=== PATIENT | female | born 1955 ===

== ENCOUNTER 2022-08-30 10:45 | Inpatient (IN) | payer OTHER ==
[~2022-08-30] VITALS: Ht 160 cm; Wt 630.5 kg
[2022-08-30] MEDS ORDERED: COZAAR50 MG PO (13:21)
[2022-08-30] MEDS ORDERED: CLONAZEPAM0.5 MG PO (13:22)
[2022-08-30] MEDS ORDERED: CARDIZEM CD120 MG PO (13:22)
[2022-09-01] MEDS ORDERED: LANSOPRAZOLE30 MG (16:05)
== END 2022-09-03 11:27 | disposition home or self-care (01) | DRG 328 ==
LOC: O/R 08-31 06:48 → ICU 08-31 06:48 → SURG 08-31 10:45 → ICU 08-31 20:36
PROVIDERS: ADMIT Surgery; ATTEND Surgery
PROC: 8E0W4CZ Robotic Assisted Procedure of Trunk Region, Percutaneous Endoscopic Approach (ICD-10-PCS; 2022-08-31)
PROC: 0BQT4ZZ Repair Diaphragm, Percutaneous Endoscopic Approach (ICD-10-PCS; principal; 2022-08-31 15:45)
DX: K44.9 Diaphragmatic hernia without obstruction or gangrene (principal); D69.6 Thrombocytopenia, unspecified; R06.09 Other forms of dyspnea
CPT/HCPCS: 43281; S2900

== ENCOUNTER 2022-09-05 12:05 | Emergency (ER) | payer OTHER ==
[~2022-09-05] VITALS: Ht 160 cm; Wt 63.5 kg
[~2022-09-05 12:05] MED LIST: CARDIZEM CD120 MG PO; CLONAZEPAM0.5 MG PO; COZAAR50 MG PO; LANSOPRAZOLE30 MG
[2022-09-05] MEDS ORDERED: COZAAR50 MG PO (13:45)
[2022-09-05] MEDS ORDERED: CLONAZEPAM0.5 MG PO (13:46)
[2022-09-05] MEDS ORDERED: DILTIAZEM HCL120 MG PO (13:46)
[2022-09-05] MEDS ORDERED: NORFLEX100MG PO (19:04)
== END 2022-09-05 19:49 | disposition home or self-care (01) ==
LOC: ER 12:05
DX: M79.622 Pain in left upper arm (principal); I10 Essential (primary) hypertension; Z88.0 Allergy status to penicillin; Z88.2 Allergy status to sulfonamides; I82.812 Embolism and thrombosis of superficial veins of left lower extremity